=== PATIENT | male | born 1995 | race Caucasian/White ===

== ENCOUNTER 2017-04-29 21:16 | Emergency (ER) | payer BC, MEDICAID ==
[~2017-04-29] VITALS: Ht 167.6 cm; Wt 106.0 kg
[2017-04-29 21:20] VITALS: Ht 167.6 cm; Wt 106.0 kg
[2017-04-29] MEDS ORDERED: LORAZEPAM 1 MG TAB PO ONE (23:00)
--- NOTE | 2017-04-30 00:10 | ERD ---
ER Documentation Chief Complaint Date/Time DATE: 04/30/17 TIME: 00:06 Chief Complaint SOB started 2 hrs ago; pt reports CP; drank coffee and soda earlier HPI 21-year-old male patient with no significant past medical history presents the ED presents to the ED complaining of feeling slightly short of breath and chest pain. Reports that he drank 3-4 cups of coffee as well as 2 cups of soda. States that he started to feel nervous and anxious. States that he felt like his heart was beating really fast. States that his left arm felt stiff. Denies any chest pain, wheezing, abdominal pain, nausea, vomiting, diarrhea, headache, weakness, numbness or tingling. Patient's friend also inquired about his eating habits. Stated that patient eats out every day at past food restaurants. Reports that he feels tired and that is why he needs to drink coffee. ROS All systems reviewed and are negative except as per history of present illness. Medications Home Meds No Active Prescriptions or Reported Meds Allergies Allergies: Coded Allergies: No Known Allergies (Verified Allergy, Mild, 09/07/11) PMhx/Soc History of Surgery: Yes (APPENDECTOMY 2011) Anesthesia Reaction: No Hx Neurological Disorder: No Hx Respiratory Disorders: No Hx Cardiac Disorders: No Hx Psychiatric Problems: No Hx Miscellaneous Medical Probl: Yes (PATERNAL DIABETES) Hx Alcohol Use: No Hx Substance Use: No Hx Tobacco Use: No Smoking Status: Never smoker Physical Exam Vitals Vital Signs Date Time Temp Pulse Resp B/P Pulse Ox O2 Delivery O2 Flow Rate FiO2 04/29/17 22:41 125 04/29/17 21:20 99.4 130 25 148/93 99 Physical Exam Const: [id number], well-nourished. In no acute distress. Head: Atraumatic, normocephalic Eyes: Normal Conjunctiva without injection. No purulent discharge. PERRL. EOMI ENT: Normal external ear. Ear canal without erythema. Tympanic membrane pearly becerra without effusion or bulging. Nasal canal clear with normal turbinates. Moist oropharynx without tonsillar exudates. Non-erythematous pharynx. Uvula midline. No drooling. No trismus. Neck: Full range of motion. No meningismus. No cervical lymphadenopathy. Resp: Clear to auscultation bilaterally. No wheezing, rhonchi, rales, or crackles. No accessory muscle use. No retractions. Cardio: Regular rate and rhythm. No murmurs, rubs or gallops. Abd: Soft, non tender, non distended. Normal bowel sounds. No palpable masses. No rebound tenderness. No guarding. Skin: No petechiae or rashes Back: No midline tenderness. No CVA tenderness. Ext: No cyanosis, or edema. Neur: Awake and alert. Psych: Normal Mood and Affect Results 24 hrs Current Medications Medications (Trade) Dose Ordered Sig/Sophie Route PRN Reason Start Time Stop Time Status Last Admin Dose Admin Lorazepam (Ativan) 1 mg ONCE ONCE PO 04/29/17 23:00 04/29/17 23:01 DC 04/29/17 23:20 Procedures/MDM This is a 21-year-old male patient with no significant past medical history presents to the ED complaining of shortness of breath, palpitations that started earlier today after drinking 3-4 cups of coffee as well as 2 cups of soda. Patient is afebrile and nontoxic-appearing. Patient has normal vital signs. EKG reviewed and interpreted by Dr. Ramos Rate/Rhythm: [120 bpm, Normal Sinus Rhythm] No ectopy, no ST elevations, normal axis. QRS, ST, T-waves: [No changes consistent w/ acute ischemia] Impression: [No evidence of ischemia or arrhythmia] Low suspicion for acute myocardial infarction, pneumothorax, pneumonia, cardiac tamponade, pulmonary embolism, AAA, aortic dissection, Boerhaave's syndrome, cardiac dysrhythmias,meningitis, intracranial bleed, seizure, stroke, TIA or other emergent conditions. Follow up with primary care physician in 1-2 days. Lifestyle changes were recommended to patient. Instructed patient to return to the ED sooner for any worsening symptoms. Patient's questions were answered. Patient understood and agreed with discharge plan. Patient discharged stable. Departure Diagnosis: Primary Impression: Adverse effect of caffeine Encounter type: initial encounter Qualified Code: T43.615A - Adverse effect of caffeine, initial encounter Condition: Stable Patient Instructions: Weight Management: Healthy Eating, More Tips for Healthy Eating Out, Eating Out: Tips for Making Healthy Choices, Healthy Eating on the Go Referrals: COMMUNITY CLINICS YOU HAVE RECEIVED A MEDICAL SCREENING EXAM AND THE RESULTS INDICATE THAT YOU DO NOT HAVE A CONDITION THAT REQUIRES URGENT TREATMENT IN THE EMERGENCY DEPARTMENT. FURTHER EVALUATION AND TREATMENT OF YOUR CONDITION CAN WAIT UNTIL YOU ARE SEEN IN YOUR DOCTORS OFFICE WITHIN THE NEXT 1-2 DAYS. IT IS YOUR RESPONSIBILITY TO MAKE AN APPOINTMENT FOR FOLOW-UP CARE. IF YOU HAVE A PRIMARY DOCTOR --you should call your primary doctor and schedule an appointment IF YOU DO NOT HAVE A PRIMARY DOCTOR YOU CAN CALL OUR PHYSICIAN REFERRAL HOTLINE AT IF YOU CAN NOT AFFORD TO SEE A PHYSICIAN YOU CAN CHOSE FROM THE FOLLOWING [facility] [address] [facility] [address] [facility] [id number] [facility] [address] [facility] [facility] [address] [facility] [facility] [address] [facility]. [facility] [address] [facility]. [facility] YOU HAVE RECEIVED A MEDICAL SCREENING EXAM AND THE RESULTS INDICATE THAT YOU DO NOT HAVE A CONDITION THAT REQUIRES URGENT TREATMENT IN THE EMERGENCY DEPARTMENT. FURTHER EVALUATION AND TREATMENT OF YOUR CONDITION CAN WAIT UNTIL YOU ARE SEEN IN YOUR DOCTORS OFFICE WITHIN THE NEXT 1-2 DAYS. IT IS YOUR RESPONSIBILITY TO MAKE AN APPOINTMENT FOR FOLOW-UP CARE. IF YOU HAVE A PRIMARY DOCTOR --you should call your primary doctor and schedule and appointment IF YOU DO NOT HAVE A PRIMARY DOCTOR YOU CAN CALL OUR PHYSICIAN REFERRAL HOTLINE AT . IF YOU CAN NOT AFFORD TO SEE A PHYSICIAN YOU CAN CHOSE FROM THE FOLLOWING [facility]: [facility] [address] [place] [address] [facility] [address] [place] [address] [facility] [address] [place] [address] [facility] Additional Instructions: Call your primary care doctor TOMORROW for an appointment during the next 3 days for further evaluation and treatment. See the doctor sooner or return here if your condition worsens before your appointment time. JACK CHANDLER PA-C Apr 30, 2017 00:10
[2017-04-30 00:25] VITALS: PULSE 94; RESP 18
== END 2017-04-30 00:26 | disposition home or self-care (01) ==
LOC: FTE 21:16
DX: R06.02 Shortness of breath (principal); T43.615A Adverse effect of caffeine, initial encounter
CPT/HCPCS: 93005; Z7502; Z7610